=== PATIENT | female | born 1985 | race Caucasian/White ===

== ENCOUNTER 2018-07-29 13:10 | Emergency (ER) | payer MEDICAID ==
--- NOTE | 2018-07-29 14:11 | ED Physician Chart ---
ED Chief Complaint/HPI - Patient Information Date Seen:: 07/29/18 Time Seen:: 13:40 Chief Complaint:: anxiety History of Present Illness:: anxiety Allergies:: Allergies Allergy/AdvReac Type Severity Reaction Status Date / Time codeine Allergy Verified 07/29/18 13:37 Vitals:: Vital Signs - 8 hr 07/29/18 13:38 Temp 98.3 F HR 90 RR 22 BP 136/85 O2 Sat % 99 Historian:: Patient Review:: Nurse's Note Reviewed ED Review of Systems - Review of Systems General/Constitutional: No fever, No chills, No weight loss, No weakness, No diaphoresis, No edema, No loss of appetite Skin: No skin lesions, No rash, No bruising Head: No headache, No light-headedness Eyes: No loss of vision, No pain, No diplopia ENT: No earache, No nasal drainage, No sore throat, No tinnitus Neck: No neck pain, No swelling, No thyromegaly, No stiffness, No mass noted Cardio Vascular: No chest pain, No palpitations, No PND, No orthopnea, No edema Pulmonary: No SOB, No cough, No sputum, No wheezing GI: No nausea, No vomiting, No diarrhea, No pain, No melena, No hematochezia, No constipation, No hematemesis G/U: No dysuria, No frequency, No hematuria Musculoskeletal: No bone or joint pain, No back pain, No muscle pain Endocrine: No polyuria, No polydipsia Psychiatric: No prior psych history, No depression, No anxiety, No suicidal ideation Hematopoietic: No bruising, No lymphadenopathy Allergic/Immuno: No urticaria, No angioedema Neurological: No syncope, No focal symptoms, No weakness, No paresthesia, No headache, No seizure, No dizziness, No confusion, No vertigo ED Past Medical History - Past Medical History Past Medical History: Other (anxiety) Social History: Illicit Drug Use Family Medical History - Family Member Mother History Unknown: Yes ED Physical Exam - Physical Examination Other Gen/Cons comments:: anti-social, angry and refuses to answer questions regarding her blood pressure medication. ED Assessment - Assessment General Assessment: Both Bobby Hamilton and Aundrea were at the patient's bedside. I asked her questions regarding the blood pressure medication that she was placed on at "the program" . She became quite angry at "all the questions" being asked of her. Prior to questioning her, I complimented her on her hair and jewelry. Nevertheless, our efforts to obtain information from her so as to help her were for nought. She said, "I'll just go since you aren't going to give me anything for my anxiety." Patient appeared to be on methamphetamine since she was very brusk, angry and hyper. She is not a danger to herself or to others. Therefore, I found that it was okay for her to be discharged. I did not have a chance to examine her before she started ripping off her EKG leads. ED Septic Shock - . Is Septic Shock (SBP<90, OR Lactate>4 mmol\\L) present?: No - <6hrs of presentation: Vital Signs: Vital Signs - 8 hr 07/29/18 13:38 Temp 98.3 F HR 90 RR 22 BP 136/85 O2 Sat % 99 ED Reassessment (Disposition) - Reassessment Reassessment Condition:: Unchanged - Diagnosis Diagnosis:: Suspected methamphetamine use. Prior illicit drug use (in a "program" previously) Drug-seeking behavior for anti-anxiety medications Anti-social personality disorder Mild elevated blood pressure. - Patient Disposition Discharge/Transfer:: Left Without Being Seen and Refused Evaluation and Treatment
== END 2018-07-29 13:52 | disposition left against medical advice (07) ==
LOC: ER 13:10
DX: F19.90 Other psychoactive substance use, unspecified, uncomplicated (principal); F60.2 Antisocial personality disorder; R03.0 Elevated blood-pressure reading, without diagnosis of hypertension; Z88.5 Allergy status to narcotic agent
CPT/HCPCS: Z7502